=== PATIENT | male | born 1975 | race Caucasian/White ===

== ENCOUNTER 2021-01-11 08:48 | Emergency (ER) | payer MEDICAID, OTHER ==
[2021-01-11] MEDS ORDERED: AZIT500T8 MT (15:53)
== END 2021-01-11 10:24 | disposition left against medical advice (07) ==
LOC: ER 08:48
DX: Z53.21 Procedure and treatment not carried out due to patient leaving prior to being seen by health care provider (principal)

== ENCOUNTER 2021-01-11 12:00 | Emergency (ER) | payer MEDICAID ==
[~2021-01-11] VITALS: Ht 170.2 cm; Wt 73.0 kg
[2021-01-11 15:04] VITALS: BP 121/89
[2021-01-11] MEDS ORDERED: AZIT500T8 MT (15:53)
== END 2021-01-11 17:02 | disposition home or self-care (01) ==
LOC: ER 12:00
DX: J06.9 Acute upper respiratory infection, unspecified (principal); J18.9 Pneumonia, unspecified organism
CPT/HCPCS: 71045; 99283